=== PATIENT | female | born 1980 | race African-American/Black ===

== ENCOUNTER 2021-05-20 17:35 | Emergency (ER) | payer MEDICAID ==
[~2021-05-20] VITALS: Ht 170.2 cm; Wt 117.9 kg
[2021-05-20 17:59] VITALS: BP_SYST 143
--- NOTE | 2021-05-20 18:00 | NUR ---
Patient to ER bed 7 to gown for evaluation. Side rails up. Report given to ASYA HOUSER .
--- NOTE | 2021-05-20 18:05 | NUR ---
Pt walked in to ER with c/o abdominal pain, / x2 days. Denies n/v or diarrhea at this time. Pt is afebrile, v/s stable, no acute distress at this time.
[2021-05-20] MEDS ORDERED: NACL 0.9% 1,000 ML IV ONE (18:15)
--- NOTE | 2021-05-20 18:15 | NUR ---
ER Dr. Iverson at bedside examining patient.
--- NOTE | 2021-05-20 18:30 | NUR ---
# 20 gauge angiocath placed to LAC. Use of asceptic technique. Opsite placed over site. Blood return noted. Blood for lab drawn from site. Flushed with 10 cc of normal saline. No evidence of infiltration noted. Patient tolerated well.
[2021-05-20] MEDS ORDERED: MORPHINE 4 MG INJ. 4 MG/ML VIAL IVP ONE ×2 (18:45→19:30)
--- NOTE | 2021-05-20 18:45 | NUR ---
Patient transported to radiology via wheelchair, accompanied by staff.
[2021-05-20 18:56] LABS: BILIRUBIN,URINE NEGATIVE (NEGATIVE); CLARITY/URINE CLOUDY (CLEAR); COLOR,URINE YELLOW (YELLOW); GLUCOSE,URINE NEGATIVE (NEGATIVE); KETONES,URINE NEGATIVE (NEGATIVE); LEUKOCYTE ESTERASE ,URINE TRACE (NEGATIVE); NITRITE, URINE NEGATIVE (NEGATIVE); PH,URINE 5.5 (5.0-8.0); PROTEIN URINE NEGATIVE (NEGATIVE); UROBILINOGEN,URINE 0.2 (0.2-1.0)
[2021-05-20 19:01] LABS: BLOOD, URINE TRACE (NEGATIVE)
[2021-05-20 19:04] LABS: BASOPHILS % (AUTO) 0.5 % (0.0-2.0); EOSINOPHILS # (AUTO) 0.1 K/uL (0.0-0.4); EOSINOPHILS % (AUTO) 1.8 % (0.0-4.0); HEMATOCRIT 35.7 % (36-48); HEMOGLOBIN 11.7 g/dL (12.0-16.0); LYMPHOCYTES # (AUTO) 2.6 K/uL (1.0-5.5); LYMPHOCYTES % (AUTO) 38.2 % (20.5-51.5); MEAN CORPUSCULAR HEMOGLOBIN 26 pg (27-31); MEAN CORPUSCULAR HGB CONC 33 % (32-36); MEAN CORPUSCULAR VOLUME 79 fL (79.0-98.0); MONOCYTES # (AUTO) 0.7 K/uL (0.0-1.0); MONOCYTES % (AUTO) 10.6 % (1.7-9.3); NEUTROPHILS # (AUTO) 3.3 K/uL (1.8-7.7); NEUTROPHILS % (AUTO) 48.9 % (40.0-70.0); PLATELET COUNT (AUTO) 242 K/uL (130-430); RED BLOOD CELL COUNT(AUTO) 4.53 MIL/uL (4.2-6.2); RED CELL DISTRIBUTION WIDTH 15.3 % (9.0-15.0); WHITE BLOOD COUNT (AUTO) 6.8 K/uL (4.8-10.8)
--- NOTE | 2021-05-20 19:08 | NUR ---
Care of patient endorsed to MIK Kumari. Pt currently resting in bed, no acute distress noted.
--- NOTE | 2021-05-20 19:08 | NUR ---
Received endorsement from day shift, AAOX4, breathing spontaneously at room air, not in distress noted, with ongoing IV fluid with 0.95 Normal SAline 100ml/hour infusing at left ac g20 iv cannula noted, patent. still with abdominal pain 05/27. vital signs stable
[2021-05-20 19:15] LABS: BACTERIA,URINE MODERATE /HPF (None Seen); RBC,URINE 0-3 /HPF (0-3)
[2021-05-20 19:16] LABS: MUCUS,URINE None Seen /LPF (None Seen)
[2021-05-20 19:17] LABS: CALCIUM 8.4 mg/dL (8.4-11.0); CREATININE 0.89 mg/dL (0.55-1.30); POTASSIUM 3.3 mmol/L (3.5-5.1)
[2021-05-20 19:23] LABS: ALBUMIN 3.5 g/dL (3.4-4.8); TOTAL BILIRUBIN 0.2 mg/dL (0.0-1.0)
[2021-05-20] MEDS ORDERED: cefTRIAXone 1 GM IVPB PREMIX 50 ML IV ONE (19:30)
--- NOTE | 2021-05-20 19:35 | NUR ---
Medications given as ordered, health teaching rpovided and verbalized understanding.
--- NOTE | 2021-05-20 19:35 | NUR ---
Re-assesed by Dr. Iverson, for discharge
[2021-05-20] MEDS ORDERED: NITR-85 PO (19:36)
[2021-05-20] MEDS ORDERED: PHEN-726 PO (19:37)
--- NOTE | 2021-05-20 19:43 | NUR ---
Complained of itchiness at left arm after the Morphine 4mg IV, Dr. Iverson made aware and ordered to give Benadryl 25mg IV once. Vital signs stable
[2021-05-20] MEDS ORDERED: DIPHENHYDRAMINE INJ 50 MG/ML VIAL ONE (19:48)
--- NOTE | 2021-05-20 19:50 | NUR ---
safety technician at bedside, blood drawn for blood culture.
[2021-05-20] MEDS ORDERED: DIPHENHYDRAMINE INJ 50 MG/ML VIAL IVP ONE (20:00)
--- NOTE | 2021-05-20 21:05 | NUR ---
Above antibiotic completed, minimal abdominal pain as claimed.
[2021-05-20 21:10] VITALS: BP_SYST 125
--- NOTE | 2021-05-20 21:10 | NUR ---
Patient given written and verbal discharge instructions and verbalizes understanding. ER MD discussed with patient the results and treatment provided. Patient in stable condition. ID arm band removed. IV catheter removed intact and dressing applied, no active bleeding. Rx of Macrobin and pyridium given. Patient educated on pain management and to follow up with PMD. Pain Scale 3/10. Opportunity for questions provided and answered. Medication side effect fact sheet provided.
--- NOTE | 2021-05-20 21:31 | NUR ---
Gregory campo in [facility] - 05/20/21 at 2132 by ERASTO Patient's code status is FULL CODE, paperwork completed and placed in chart.
== END 2021-05-20 21:10 | disposition home or self-care (01) ==
LOC: SED 17:35
DX: N39.0 Urinary tract infection, site not specified (principal); I10 Essential (primary) hypertension; K21.9 Gastro-esophageal reflux disease without esophagitis; Z91.040 Latex allergy status; Z88.8 Allergy status to other drugs, medicaments and biological substances; Z79.899 Other long term (current) drug therapy
CPT/HCPCS: 36415; 74176; 76376; 80053; 81000; 85025; 87040; 87086; 96361; 96365; 96375; 96376; 99284; J0696; J1200; J2270; J7030

== ENCOUNTER 2021-06-07 17:04 | Emergency (ER) | payer MEDICAID ==
[~2021-06-07] VITALS: Ht 170.2 cm; Wt 117.9 kg
[~2021-06-07 17:04] MED LIST: NITR-85 PO; PHEN-726 PO
[2021-06-07 17:13] VITALS: BP_SYST 166
--- NOTE | 2021-06-07 17:13 | NUR ---
Placed in room 02 . Placed on monitoring and evaluation advisor, blood pressure machine and pulse oximeter. To gown for exam. Side rails up.
--- NOTE | 2021-06-07 17:20 | NUR ---
EKG performed at by MIK Hopson. Physician given copy of EKG for review.
--- NOTE | 2021-06-07 17:30 | NUR ---
Patient brought in from home complaining of lower back and body aches. Patient reports that she fell down 4-5 wooden steps onto her left side 2 hours prior to arrival. Patient reports feeling hot, lightheaded, naseous, short of breath and shaky prior to passing out and woke up with sister 1 minute later. Patient denies any loss of bowel or bladder. Pain 10/10 to the lwoer back. patient reports this has happened 3 times in the last 2 weeks. No other complaints/injuries per patient or as noted.
--- NOTE | 2021-06-07 17:45 | NUR ---
ER Dr. Keyes at bedside examining patient.
[2021-06-07 18:11] LABS: CALCIUM 8.9 mg/dL (8.4-11.0); POTASSIUM 3.7 mmol/L (3.5-5.1)
[2021-06-07 18:12] LABS: CREATININE 0.8 mg/dL (0.55-1.30)
[2021-06-07] MEDS ORDERED: CYCLOBENZAPRINE HCL 10 MG TABLET (FLEXERIL) PO ONE (18:15)
[2021-06-07 18:28] LABS: ALBUMIN 3.4 g/dL (3.4-4.8); PHOSPHORUS 3.8 mg/dL (2.7-4.5); TOTAL BILIRUBIN 0.2 mg/dL (0.0-1.0)
[2021-06-07 18:32] LABS: BASOPHILS % (AUTO) 0.5 % (0.0-2.0); EOSINOPHILS # (AUTO) 0.1 K/uL (0.0-0.4); EOSINOPHILS % (AUTO) 2.2 % (0.0-4.0); HEMATOCRIT 36.5 % (36-48); HEMOGLOBIN 11.8 g/dL (12.0-16.0); LYMPHOCYTES # (AUTO) 1.7 K/uL (1.0-5.5); LYMPHOCYTES % (AUTO) 30.6 % (20.5-51.5); MEAN CORPUSCULAR HEMOGLOBIN 26 pg (27-31); MEAN CORPUSCULAR HGB CONC 32 % (32-36); MEAN CORPUSCULAR VOLUME 79 fL (79.0-98.0); MONOCYTES # (AUTO) 0.6 K/uL (0.0-1.0); MONOCYTES % (AUTO) 10.4 % (1.7-9.3); NEUTROPHILS # (AUTO) 3.1 K/uL (1.8-7.7); NEUTROPHILS % (AUTO) 56.3 % (40.0-70.0); PLATELET COUNT (AUTO) 238 K/uL (130-430); RED BLOOD CELL COUNT(AUTO) 4.63 MIL/uL (4.2-6.2); RED CELL DISTRIBUTION WIDTH 15.7 % (9.0-15.0); WHITE BLOOD COUNT (AUTO) 5.5 K/uL (4.8-10.8)
--- NOTE | 2021-06-07 19:50 | NUR ---
REPORT RECEIVED FROM MIK AGRAWAL. PT STATING HAVING 10/10 ON THE PAIN SCALE TO LEFT SIDE OF BODY AND BACK. MD NARANJO NOTIFIED.
[2021-06-07] MEDS ORDERED: CYCL10TA24 PO (20:03)
[2021-06-07] MEDS ORDERED: ACET-73 PO (20:03)
[2021-06-07] MEDS ORDERED: HYDROcodone/ACETAMIN 5-325 MG TAB (NORCO/ VICODIN) PO ONE (20:15)
[2021-06-07 20:20] VITALS: BP_SYST 166
--- NOTE | 2021-06-07 20:20 | NUR ---
Patient given written and verbal discharge instructions and verbalizes understanding. DR. JOSE A PEDROZA MD discussed with patient the results and treatment provided. Patient in stable condition. ID arm band removed. IV catheter removed intact and dressing applied, no active bleeding. Rx of ACETAMINOPEH, CYCLOBENZAPRINE given. Patient educated on pain management and to follow up with PMD. Pain Scale 0/10. Opportunity for questions provided and answered. Medication side effect fact sheet provided.
== END 2021-06-07 20:20 | disposition home or self-care (01) ==
LOC: SED 17:04
DX: S39.012A Strain of muscle, fascia and tendon of lower back, initial encounter (principal); R55 Syncope and collapse; I10 Essential (primary) hypertension; K21.9 Gastro-esophageal reflux disease without esophagitis; Z88.8 Allergy status to other drugs, medicaments and biological substances; Z91.040 Latex allergy status; W18.39XA Other fall on same level, initial encounter; Y93.89 Activity, other specified; Y92.89 Other specified places as the place of occurrence of the external cause; Y99.8 Other external cause status
CPT/HCPCS: 36415; 80053; 81025; 82962; 83735; 84100; 84702; 85025; 93005; 99284

== ENCOUNTER 2021-06-16 18:07 | Emergency (ER) | payer MEDICAID ==
[~2021-06-16] VITALS: Ht 170.2 cm; Wt 108.9 kg
[~2021-06-16 18:07] MED LIST changes: +ACET-73 PO; +CYCL10TA24 PO
[2021-06-16 18:19] VITALS: BP_SYST 138
[2021-06-16 21:43] LABS: BARBITURATE, URINE NEGATIVE (NEG <=200); BENZODIAZEPINE, URINE NEGATIVE (NEG <=150); CANNABINOID, URINE NEGATIVE (NEG <=50); COCAINE, URINE NEGATIVE (NEG <=150); METHAMPHETAMINES SCREEN,URINE NEGATIVE (NEG <=500); OPIATE, URINE POSITIVE (NEG <=100); PHENCYCLIDINE SCREEN,URINE NEGATIVE (NEG <=25); UR TRICYCLIC ANTIDEPRESSANTS NEGATIVE (NEG <=300); URINE AMPHETAMINE NEGATIVE (NEG <=500); URINE METHADONE NEGATIVE (NEG <=200); URINE OXYCODONE SCREEN NEGATIVE (NEG <=100); URINE PROPOXYPHENE SCREEN NEGATIVE (NEG <=300)
[2021-06-16] MEDS ORDERED: HYDROcodone/ACETAMIN 5-325 MG TAB (NORCO/ VICODIN) PO ONE ×2 (21:45→23:30)
[2021-06-16 21:55] LABS: BASOPHILS % (AUTO) 0.5 % (0.0-2.0); EOSINOPHILS # (AUTO) 0.1 K/uL (0.0-0.4); EOSINOPHILS % (AUTO) 2.9 % (0.0-4.0); HEMATOCRIT 34.2 % (36-48); HEMOGLOBIN 11.3 g/dL (12.0-16.0); LYMPHOCYTES # (AUTO) 1.5 K/uL (1.0-5.5); LYMPHOCYTES % (AUTO) 31.3 % (20.5-51.5); MEAN CORPUSCULAR HEMOGLOBIN 26 pg (27-31); MEAN CORPUSCULAR HGB CONC 33 % (32-36); MEAN CORPUSCULAR VOLUME 79 fL (79.0-98.0); MONOCYTES # (AUTO) 0.4 K/uL (0.0-1.0); NEUTROPHILS # (AUTO) 2.8 K/uL (1.8-7.7); NEUTROPHILS % (AUTO) 56.3 % (40.0-70.0); PLATELET COUNT (AUTO) 222 K/uL (130-430); RED BLOOD CELL COUNT(AUTO) 4.32 MIL/uL (4.2-6.2); RED CELL DISTRIBUTION WIDTH 15.7 % (9.0-15.0); WHITE BLOOD COUNT (AUTO) 4.9 K/uL (4.8-10.8)
[2021-06-16 22:16] LABS: CALCIUM 8.6 mg/dL (8.4-11.0); CREATININE 0.91 mg/dL (0.55-1.30); POTASSIUM 3.8 mmol/L (3.5-5.1)
[2021-06-16 22:22] LABS: ALBUMIN 3.5 g/dL (3.4-4.8); TOTAL BILIRUBIN 0.2 mg/dL (0.0-1.0)
[2021-06-16] MEDS ORDERED: HYDR-3917 PO (23:27)
[2021-06-16 23:50] VITALS: BP_SYST 124
== END 2021-06-16 23:50 | disposition home or self-care (01) ==
LOC: SED 18:07
DX: S30.0XXA Contusion of lower back and pelvis, initial encounter (principal); S09.90XA Unspecified injury of head, initial encounter; I10 Essential (primary) hypertension; K21.9 Gastro-esophageal reflux disease without esophagitis; Z91.040 Latex allergy status; Z88.8 Allergy status to other drugs, medicaments and biological substances; Z79.899 Other long term (current) drug therapy; W18.39XA Other fall on same level, initial encounter; Y93.89 Activity, other specified; Y92.89 Other specified places as the place of occurrence of the external cause; Y99.8 Other external cause status
CPT/HCPCS: 36415; 70450-TC; 72100-TC; 76376; 80053; 80307; 81025; 85025; 99285

== ENCOUNTER 2021-08-17 18:23 | Emergency (ER) | payer MEDICAID ==
[~2021-08-17] VITALS: Ht 170.2 cm; Wt 117.9 kg
[~2021-08-17 18:23] MED LIST changes: +HYDR-3917 PO
[2021-08-17 18:25] VITALS: BP_SYST 129
--- NOTE | 2021-08-17 18:25 | NUR ---
BROUGHT BACK TO BED #7 AND TRIAGED. REPORT GIVEN TO ELMER
--- NOTE | 2021-08-17 18:35 | NUR ---
EKG done, pt. here for 10/10 chest pain
--- NOTE | 2021-08-17 18:55 | NUR ---
radiology at bedside for chest xray
--- NOTE | 2021-08-17 19:08 | NUR ---
REPORT RECEIVED FROM ELMER HOUSER
--- NOTE | 2021-08-17 19:14 | NUR ---
DR LEWIS AT BEDSIDE SPEKING WITH PT. PT STATES SHE HAS HAD ONGOING CRUSHING CHEST PAIN X 24 HRS, STATES WORSE WITH BREATHING. PT REMAINS ON BEDSDIDE MONITOR. BED IN LIWEST POSITION, LOCKED, AMD SIDERAIL UP X 1. LAB AT BEDSIDE
[2021-08-17] MEDS ORDERED: MORPHINE 4 MG INJ. 4 MG/ML VIAL IVP ONE ×2 (19:30→20:45)
[2021-08-17 19:38] LABS: BASOPHILS % (AUTO) 0.7 % (0.0-2.0); EOSINOPHILS # (AUTO) 0.2 K/uL (0.0-0.4); EOSINOPHILS % (AUTO) 3.3 % (0.0-4.0); HEMATOCRIT 33.3 % (36-48); HEMOGLOBIN 10.8 g/dL (12.0-16.0); LYMPHOCYTES # (AUTO) 1.2 K/uL (1.0-5.5); LYMPHOCYTES % (AUTO) 26.8 % (20.5-51.5); MEAN CORPUSCULAR HEMOGLOBIN 25 pg (27-31); MEAN CORPUSCULAR HGB CONC 33 % (32-36); MEAN CORPUSCULAR VOLUME 77 fL (79.0-98.0); MONOCYTES # (AUTO) 0.5 K/uL (0.0-1.0); MONOCYTES % (AUTO) 10.5 % (1.7-9.3); NEUTROPHILS # (AUTO) 2.7 K/uL (1.8-7.7); NEUTROPHILS % (AUTO) 58.7 % (40.0-70.0); PLATELET COUNT (AUTO) 257 K/uL (130-430); RED BLOOD CELL COUNT(AUTO) 4.32 MIL/uL (4.2-6.2); RED CELL DISTRIBUTION WIDTH 15.9 % (9.0-15.0); WHITE BLOOD COUNT (AUTO) 4.5 K/uL (4.8-10.8)
[2021-08-17] MEDS ORDERED: IOHEXOL 350 mgI/mL, 150 ML INFUS..BTL IV ONE (19:53)
--- NOTE | 2021-08-17 19:56 | NUR ---
PT TO HAVE CT OF CHEST WITH IV CONTRAST, CONSENT SIGNED BY PT
--- NOTE | 2021-08-17 20:00 | NUR ---
PT TAKEN TO CT VIA WHEELCHAIR
[2021-08-17 20:01] LABS: CALCIUM 8.6 mg/dL (8.4-11.0); CREATININE 0.87 mg/dL (0.55-1.30); POTASSIUM 3.9 mmol/L (3.5-5.1)
[2021-08-17 20:07] LABS: ALBUMIN 3.5 g/dL (3.4-4.8); TOTAL BILIRUBIN 0.1 mg/dL (0.0-1.0)
[2021-08-17] MEDS ORDERED: methylPREDNISolone SOD SUCC/PF 62.5 MG/ML VIAL ONE (20:11)
[2021-08-17] MEDS ORDERED: DIPHENHYDRAMINE INJ 50 MG/ML VIAL ONE (20:13)
--- NOTE | 2021-08-17 20:13 | NUR ---
PT RETURNED FROM CT
[2021-08-17] MEDS ORDERED: methylPREDNISolone SOD SUCC/PF 62.5 MG/ML VIAL IVP ONE (20:15)
[2021-08-17] MEDS ORDERED: DIPHENHYDRAMINE INJ 50 MG/ML VIAL IVP ONE (20:15)
--- NOTE | 2021-08-17 20:19 | NUR ---
PT RETURNED FROM CT AND WAS MEDICATED WITH BENADRYL AND SOLUMEDROL AFTER COMPLAINING OF ITCHING. AFTER MEDICATION SHE IS COMPLAINING OF NAUSEA, PROVIDED WITH BASIN. ALSO CONTINUTES TO C/O 8/10 CHEST PAIN. SIN AWARE
[2021-08-17] MEDS ORDERED: ONDANSETRON HCL 4 MG/2 ML VIAL IVP ONE (20:45)
--- NOTE | 2021-08-17 20:56 | NUR ---
PT RESTING MORE COMFORTABLY, PAIN NOW 5/10, NO MORE NAUSEA AND NO ITCHING.
--- NOTE | 2021-08-17 22:36 | NUR ---
ALL LAB WORK WNL, WAITING FOR MD TO SEE PT. PT RESTING COMFORTABLY, PAIN DOWN TO 2/10. NO C/O AT THIS TIME.
[2021-08-17 23:34] VITALS: BP_SYST 137
--- NOTE | 2021-08-17 23:35 | NUR ---
Patient given written and verbal discharge instructions and verbalizes understanding. ER MD discussed with patient the results and treatment provided. Patient in stable condition. ID arm band removed. IV catheter removed intact and dressing applied, no active bleeding. Patient educated on pain management and to follow up with PMD. Pain Scale 2. Opportunity for questions provided and answered. Medication side effect fact sheet provided.
== END 2021-08-17 23:35 | disposition home or self-care (01) ==
LOC: SED 18:23
DX: R07.2 Precordial pain (principal); I10 Essential (primary) hypertension; K21.9 Gastro-esophageal reflux disease without esophagitis; Z88.8 Allergy status to other drugs, medicaments and biological substances; Z79.899 Other long term (current) drug therapy
CPT/HCPCS: 36415; 71045; 71275; 76376; 80053; 81025; 83880; 84484; 85025; 85379; 93005; 96374; 96375; 96376; 99285; J1200; J2270; J2405; J2930; Q9967

== ENCOUNTER → 2022-03-20 | Emergency (ER) | payer MEDICAID ==
[~2022-03-20] VITALS: Ht 167.6 cm; Wt 109.8 kg
[~2022-03-20] MED LIST changes: +DEXAMETHASONE SOD PHOSPHATE 10 MG/ML VIAL IVP ONE; +DIPHENHYDRAMINE INJ 50 MG/ML VIAL IVP ONE; +MORPHINE 4 MG INJ. 4 MG/ML VIAL IVP ONE; +MORPHINE 4 MG INJ. 4 MG/ML VIAL ONE; +PANT20TA2 PO; +PANTOPRAZOLE SODIUM 40 MG/VIAL (PROTONIX) IVP ONE; +PRED20TA PO; +PROCHLORPERAZINE EDISYLATE 10 MG/2 ML VIAL IVP ONE; +PROCHLORPERAZINE EDISYLATE 10 MG/2 ML VIAL ONE; +iohexoL 350 mgI/mL, 100 ML INFUS..BTL IV ONE; +traMADol HCL HCL 50 MG TABLET (ULTRAM) PO ONE
[2022-03-20 21:30] VITALS: BP_SYST 127
[2022-03-20 23:52] LABS: HEMOGLOBIN 9.7 g/dL (12.0-16.0)
[2022-03-20 23:57] LABS: BASOPHILS % (AUTO) 0.6 % (0.0-2.0); EOSINOPHILS # (AUTO) 0.1 K/uL (0.0-0.4); HEMATOCRIT 29.2 % (36-48); LYMPHOCYTES # (AUTO) 0.8 K/uL (1.0-5.5); LYMPHOCYTES % (AUTO) 26.6 % (20.5-51.5); MEAN CORPUSCULAR HEMOGLOBIN 26 pg (27-31); MEAN CORPUSCULAR HGB CONC 33 % (32-36); MEAN CORPUSCULAR VOLUME 76 fL (79.0-98.0); MONOCYTES # (AUTO) 0.5 K/uL (0.0-1.0); MONOCYTES % (AUTO) 15.2 % (1.7-9.3); NEUTROPHILS # (AUTO) 1.7 K/uL (1.8-7.7); NEUTROPHILS % (AUTO) 55.6 % (40.0-70.0); PLATELET COUNT (AUTO) 238 K/uL (130-430); RED BLOOD CELL COUNT(AUTO) 3.83 MIL/uL (4.2-6.2); WHITE BLOOD COUNT (AUTO) 3.1 K/uL (4.8-10.8)
[2022-03-20 23:59] LABS: ANION GAP 5 (5-15); CALCIUM 8.2 mg/dL (8.4-11.0); CHLORIDE 104 mmol/L (98-107); CREATININE 0.87 mg/dL (0.55-1.30); GLUCOSE 120 mg/dL (70-99); POTASSIUM 3.4 mmol/L (3.5-5.1); SODIUM SERUM 139 mmol/L (136-145); UREA NITROGEN, BLOOD 5 mg/dL (8-21)
[2022-03-21 00:07] LABS: ALANINE AMINOTRANSFERASE 56 U/L (12-78); ALBUMIN 3.4 g/dL (3.4-4.8); ASPARTATE AMINOTRANSFERASE 47 U/L (10-37); TOTAL BILIRUBIN 0.3 mg/dL (0.0-1.0)
[2022-03-21 00:09] LABS: GFR AFRICAN AMERICAN 93 mL/min (>90)
[2022-03-21 06:31] VITALS: BP_SYST 115
== END | disposition home or self-care (01) ==
LOC: SED 21:25
DX: K92.2 Gastrointestinal hemorrhage, unspecified (principal); R09.1 Pleurisy; R06.02 Shortness of breath; R10.13 Epigastric pain; I10 Essential (primary) hypertension; Z88.6 Allergy status to analgesic agent; Z91.040 Latex allergy status; Z79.899 Other long term (current) drug therapy
CPT/HCPCS: 36415; 71045; 71275; 76376; 80053; 81025; 83880; 84484; 85025; 85379; 93005; 96374; 96375; 99285; C9113; J0780; J1100; J1200; J2270; Q9967

== ENCOUNTER 2022-04-24 11:40 | Emergency (ER) | payer MEDICAID ==
[~2022-04-24] VITALS: Ht 167.6 cm; Wt 109.8 kg
[~2022-04-24 11:40] MED LIST changes: -DEXAMETHASONE SOD PHOSPHATE 10 MG/ML VIAL IVP ONE; -DIPHENHYDRAMINE INJ 50 MG/ML VIAL IVP ONE; -MORPHINE 4 MG INJ. 4 MG/ML VIAL IVP ONE; -MORPHINE 4 MG INJ. 4 MG/ML VIAL ONE; -PANTOPRAZOLE SODIUM 40 MG/VIAL (PROTONIX) IVP ONE; -PROCHLORPERAZINE EDISYLATE 10 MG/2 ML VIAL IVP ONE; -PROCHLORPERAZINE EDISYLATE 10 MG/2 ML VIAL ONE; -iohexoL 350 mgI/mL, 100 ML INFUS..BTL IV ONE; -traMADol HCL HCL 50 MG TABLET (ULTRAM) PO ONE
[2022-04-24 11:43] VITALS: BP_SYST 142
[2022-04-24] MEDS ORDERED: DIPHENHYDRAMINE INJ 50 MG/ML VIAL IVP ONE ×2 (12:15→14:45)
[2022-04-24] MEDS ORDERED: methylPREDNISolone SOD SUCC/PF 62.5 MG/ML VIAL IVP ONE (12:15)
[2022-04-24 12:31] LABS: BASOPHILS % (AUTO) 0.2 % (0.0-2.0); HEMATOCRIT 31.8 % (36-48); HEMOGLOBIN 10.4 g/dL (12.0-16.0); LYMPHOCYTES # (AUTO) 0.3 K/uL (1.0-5.5); MEAN CORPUSCULAR HEMOGLOBIN 24 pg (27-31); MEAN CORPUSCULAR HGB CONC 33 % (32-36); MEAN CORPUSCULAR VOLUME 74 fL (79.0-98.0); MONOCYTES # (AUTO) 0.2 K/uL (0.0-1.0); MONOCYTES % (AUTO) 3.4 % (1.7-9.3); NEUTROPHILS # (AUTO) 5.4 K/uL (1.8-7.7); NEUTROPHILS % (AUTO) 91.4 % (40.0-70.0); PLATELET COUNT (AUTO) 269 K/uL (130-430); RED BLOOD CELL COUNT(AUTO) 4.28 MIL/uL (4.2-6.2); RED CELL DISTRIBUTION WIDTH 16.3 % (9.0-15.0); WHITE BLOOD COUNT (AUTO) 5.9 K/uL (4.8-10.8)
[2022-04-24 13:04] LABS: CALCIUM 9.4 mg/dL (8.4-11.0); CREATININE 0.9 mg/dL (0.55-1.30); POTASSIUM 3.9 mmol/L (3.5-5.1)
[2022-04-24 13:16] LABS: ALBUMIN 3.5 g/dL (3.4-4.8); TOTAL BILIRUBIN 0.2 mg/dL (0.0-1.0)
[2022-04-24] MEDS ORDERED: DIPHENHYDRAMINE INJ 50 MG/ML VIAL ONE (14:27)
[2022-04-24] MEDS ORDERED: methylPREDNISolone SOD SUCC/PF 62.5 MG/ML VIAL ONE (14:28)
[2022-04-24] MEDS ORDERED: iohexoL 350 mgI/mL, 100 ML INFUS..BTL IV ONE (14:53)
[2022-04-24] MEDS ORDERED: MORPHINE 2 MG/ML INJ. SYRINGE IVP ONE (15:30)
[2022-04-24] MEDS ORDERED: ACET-2634 PO (15:58)
[2022-04-24] MEDS ORDERED: IBUP-1969 PO (15:58)
[2022-04-24 17:12] VITALS: BP_SYST 142
== END 2022-04-24 17:12 | disposition home or self-care (01) ==
LOC: SED 11:40
DX: R07.9 Chest pain, unspecified (principal); R06.02 Shortness of breath; I10 Essential (primary) hypertension; K21.9 Gastro-esophageal reflux disease without esophagitis; Z88.6 Allergy status to analgesic agent; Z91.040 Latex allergy status; Z79.899 Other long term (current) drug therapy
CPT/HCPCS: 36569; 80053; 85025; 85379; 84484; 36415; 71275; 99285; 96375; 96374; 93005; 76376; Q9967; J1200; J2930; J2270

== ENCOUNTER 2022-06-14 12:48 | Emergency (ER) | payer MEDICAID ==
[~2022-06-14] VITALS: Ht 167.6 cm; Wt 109.8 kg
[~2022-06-14 12:48] MED LIST changes: +ACET-2634 PO; +IBUP-1969 PO; +RIVA15TA PO; +TRAM50TA PO
--- NOTE | 2022-06-14 12:50 | NUR ---
RECEIVED PT FROM MIK HOLLY. PT BIBS WITH C/O SYNCOPE WITH INJURY TO HEAD, N/V, C/P AND BACK PAIN. PT CAME IN FROM HOME WITH IV CATH TO LATRICE 20G, FLUSHED, PATENT, SITE WNL. RESP E/U. NO R/A. SKIN CDI, NO EDEMA. SIDERAILS UP X2.
[2022-06-14 12:59] VITALS: BP_SYST 100
--- NOTE | 2022-06-14 13:20 | NUR ---
Placed in room 03 . Placed on director translation, blood pressure machine and pulse oximeter. To gown for exam. Side rails up. Report given to Anne HOUSER.
[2022-06-14 13:43] LABS: HEMATOCRIT 26.9 % (36-48); MEAN CORPUSCULAR VOLUME 75 fL (79.0-98.0); PLATELET COUNT (AUTO) 200 K/uL (130-430); RED BLOOD CELL COUNT(AUTO) 3.59 MIL/uL (4.2-6.2); RED CELL DISTRIBUTION WIDTH 20.4 % (9.0-15.0); WHITE BLOOD COUNT (AUTO) 6.1 K/uL (4.8-10.8)
[2022-06-14] MEDS ORDERED: DIPHENHYDRAMINE INJ 50 MG/ML VIAL IVP ONE (13:45)
[2022-06-14] MEDS ORDERED: iohexoL 350 mgI/mL, 100 ML INFUS..BTL IV ONE (14:05)
--- NOTE | 2022-06-14 14:10 | NUR ---
BENEDRYL GIVEN IN PREP FOR CTA.
[2022-06-14 14:20] LABS: ANION GAP 11 (5-15); CALCIUM 8.7 mg/dL (8.4-11.0); CHLORIDE 108 mmol/L (98-107); CREATININE 0.92 mg/dL (0.55-1.30); GLUCOSE 157 mg/dL (70-99); UREA NITROGEN, BLOOD 10 mg/dL (8-21)
[2022-06-14 14:24] LABS: BAND % (MANUAL) 2 % (0-6); BASOPHILS % (MANUAL) 0 % (0-2); EOSINOPHILS % (MANUAL) 0 % (0-7); LYMPHOCYTES % (MANUAL) 12 % (20-46); MONOCYTES % (MANUAL) 3 % (0-11)
[2022-06-14 14:26] LABS: GFR AFRICAN AMERICAN 87 mL/min (>90)
[2022-06-14 14:28] LABS: ALANINE AMINOTRANSFERASE 80 U/L (12-78); ALBUMIN 2.9 g/dL (3.4-4.8); ASPARTATE AMINOTRANSFERASE 19 U/L (10-37); TOTAL BILIRUBIN 0.1 mg/dL (0.0-1.0)
--- NOTE | 2022-06-14 16:06 | NUR ---
PT ELOPED. PT HAD IV CATH IN PLACE THAT WAS PLACED OUTSIDE THIS FACILITY, PT WAS ADMITTED WITH IT.
== END 2022-06-14 16:05 | disposition left against medical advice (07) ==
LOC: SED 12:48
DX: R07.89 Other chest pain (principal); K21.9 Gastro-esophageal reflux disease without esophagitis; I10 Essential (primary) hypertension; Z88.6 Allergy status to analgesic agent; Z91.040 Latex allergy status; Z91.041 Radiographic dye allergy status; Z79.899 Other long term (current) drug therapy
CPT/HCPCS: 99285; 70450; 96374; 71045; 85027; 80053; 85007; 84484; 36415; 93005; 71275; 81025; 76376; Q9967; J1200

== ENCOUNTER 2022-07-17 14:02 | Emergency (ER) | payer MEDICAID ==
[~2022-07-17] VITALS: Ht 167.6 cm; Wt 110.2 kg
[2022-07-17 14:05] VITALS: BP_SYST 126
--- NOTE | 2022-07-17 14:05 | NUR ---
Patient triaged and placed in waiting room. VSS and patient appears in no acute distress at this time. Accompanied by SELF, awaiting available bed, and MD notified of need for MSE.
--- NOTE | 2022-07-17 14:24 | NUR ---
ER DR. MARTIN EXAMINING PT IN TRIAGE
[2022-07-17 15:01] LABS: BASOPHILS % (AUTO) 0.5 % (0.0-2.0); EOSINOPHILS % (AUTO) 0.1 % (0.0-4.0); HEMATOCRIT 26.6 % (36-48); HEMOGLOBIN 8.5 g/dL (12.0-16.0); LYMPHOCYTES # (AUTO) 0.8 K/uL (1.0-5.5); MEAN CORPUSCULAR HEMOGLOBIN 23 pg (27-31); MEAN CORPUSCULAR HGB CONC 32 % (32-36); MEAN CORPUSCULAR VOLUME 73 fL (79.0-98.0); MONOCYTES # (AUTO) 0.6 K/uL (0.0-1.0); MONOCYTES % (AUTO) 12.5 % (1.7-9.3); NEUTROPHILS # (AUTO) 3.1 K/uL (1.8-7.7); NEUTROPHILS % (AUTO) 69.9 % (40.0-70.0); PLATELET COUNT (AUTO) 233 K/uL (130-430); RED BLOOD CELL COUNT(AUTO) 3.63 MIL/uL (4.2-6.2); WHITE BLOOD COUNT (AUTO) 4.4 K/uL (4.8-10.8)
[2022-07-17 15:07] LABS: ANION GAP 6 (5-15); CHLORIDE 106 mmol/L (98-107); CREATININE 0.84 mg/dL (0.55-1.30); GLUCOSE 102 mg/dL (70-99); POTASSIUM 3.3 mmol/L (3.5-5.1); UREA NITROGEN, BLOOD 14 mg/dL (8-21)
[2022-07-17 15:16] LABS: ALANINE AMINOTRANSFERASE 26 U/L (12-78); ALBUMIN 3.5 g/dL (3.4-4.8); ASPARTATE AMINOTRANSFERASE 10 U/L (10-37); TOTAL BILIRUBIN 0.1 mg/dL (0.0-1.0)
[2022-07-17 15:19] LABS: GFR AFRICAN AMERICAN 97 mL/min (>90)
--- NOTE | 2022-07-17 15:25 | NUR ---
Placed in room 7 . Placed on athletic monitor, blood pressure machine and pulse oximeter. To gown for exam. Side rails up. Report given to MIK PALAFOX.
[2022-07-17] MEDS ORDERED: DIPHENHYDRAMINE INJ 50 MG/ML VIAL IVP ONE (16:30)
[2022-07-17] MEDS ORDERED: METHYLPREDNISOLONE SOD SUCC 40 MG/ML VIAL INJ ONE (16:30)
--- NOTE | 2022-07-17 17:24 | NUR ---
patient to ed for complains of syncopal episode three hours ago at work. patient has complaints of midsternal chest pain, denies radiation and sob. NSR on the monitor and sitting and watching cartoons on her phone at this time. patient has internal IJ started by Dr. 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 patient states she has PE's four months ago, Afib april of last year patient has regular rhythm today. patient administered benadryl iv and solumedrol iv at this time. will continue to monitor patient. patient remains on color television console monitor, blankets adminitered. comfort and safety maintained.
--- NOTE | 2022-07-17 17:35 | NUR ---
MD notified of patient's pain level and no orders for pain medication.
--- NOTE | 2022-07-17 17:42 | NUR ---
patient to ct scan in stable condition
--- NOTE | 2022-07-17 17:43 | NUR ---
patient administered benadryl and solumedrol for ct contrast reactions
[2022-07-17] MEDS ORDERED: iohexoL 350 mgI/mL, 100 ML INFUS..BTL IV ONE (17:44)
--- NOTE | 2022-07-17 18:29 | NUR ---
patient back from radiology, waiting for results at this time. patient resting comfortably and talking on cell phone
[2022-07-17 18:30] VITALS: BP_SYST 106
[2022-07-17] MEDS ORDERED: HYDR-3917 PO (18:45)
[2022-07-17] MEDS ORDERED: IBUP-1969 PO (18:45)
--- NOTE | 2022-07-17 18:59 | NUR ---
Patient given written and verbal discharge instructions and verbalizes understanding. ER MD discussed with patient the results and treatment provided. Patient in stable condition. ID arm band removed. IV catheter removed intact and dressing applied, no active bleeding. Rx of given. Patient educated on pain management and to follow up with PMD. Pain Scale . Opportunity for questions provided and answered. Medication side effect fact sheet provided. MD dr. Vanegas removed right neck IJ at this time, cath in place, no bleeding, swelling or hematoma.
== END 2022-07-17 19:06 | disposition home or self-care (01) ==
LOC: SED 14:02
DX: R55 Syncope and collapse (principal); R07.89 Other chest pain; I10 Essential (primary) hypertension; K21.9 Gastro-esophageal reflux disease without esophagitis; Z72.89 Other problems related to lifestyle; Z88.6 Allergy status to analgesic agent; Z91.041 Radiographic dye allergy status; Z91.040 Latex allergy status; Z79.899 Other long term (current) drug therapy
CPT/HCPCS: 99285; 70450; 96374; 71045; 80053; 82550; 85025; 85379; 85610; 85730; 84484; 36415; 93005; 71275; 81025; 83605; 76376; Q9967; J1200; J1030

== ENCOUNTER 2022-12-10 14:59 | Emergency (ER) | payer MEDICAID ==
[~2022-12-10] VITALS: Ht 167.6 cm; Wt 110.2 kg
[2022-12-10 15:14] VITALS: BP_SYST 138
[2022-12-10 16:16] LABS: BASOPHILS % (AUTO) 0.4 % (0.0-2.0); HEMATOCRIT 29.7 % (36-48); HEMOGLOBIN 9.5 g/dL (12.0-16.0); LYMPHOCYTES # (AUTO) 0.7 K/uL (1.0-5.5); LYMPHOCYTES % (AUTO) 9.9 % (20.5-51.5); MEAN CORPUSCULAR HEMOGLOBIN 24 pg (27-31); MEAN CORPUSCULAR HGB CONC 32 % (32-36); MEAN CORPUSCULAR VOLUME 76 fL (79.0-98.0); MONOCYTES # (AUTO) 0.9 K/uL (0.0-1.0); NEUTROPHILS # (AUTO) 5.5 K/uL (1.8-7.7); NEUTROPHILS % (AUTO) 76.7 % (40.0-70.0); PLATELET COUNT (AUTO) 242 K/uL (130-430); RED CELL DISTRIBUTION WIDTH 21.4 % (9.0-15.0); WHITE BLOOD COUNT (AUTO) 7.2 K/uL (4.8-10.8)
[2022-12-10 16:41] LABS: ANION GAP 8 (5-15); CALCIUM 8.9 mg/dL (8.4-11.0); CHLORIDE 104 mmol/L (98-107); CREATININE 0.73 mg/dL (0.55-1.30); GFR AFRICAN AMERICAN 114 mL/min (>90); GLUCOSE 152 mg/dL (70-99); UREA NITROGEN, BLOOD 9 mg/dL (8-21)
[2022-12-10 16:46] LABS: ALANINE AMINOTRANSFERASE 16 U/L (12-78); ALBUMIN 3.2 g/dL (3.4-4.8); ASPARTATE AMINOTRANSFERASE 8 U/L (10-37); PROTHROMBIN TIME 10.2 SECS (9.5-12.5); TOTAL BILIRUBIN 0.2 mg/dL (0.0-1.0)
[2022-12-10] MEDS ORDERED: HYDR-3917 PO (17:17)
[2022-12-10] MEDS ORDERED: IBUP-1969 PO (17:17)
[2022-12-10 17:50] VITALS: BP_SYST 123
== END 2022-12-10 17:50 | disposition home or self-care (01) ==
LOC: SED 14:59
DX: R07.89 Other chest pain (principal); R05.9 Cough, unspecified; R06.02 Shortness of breath; E11.9 Type 2 diabetes mellitus without complications; I10 Essential (primary) hypertension; Z91.041 Radiographic dye allergy status; Z88.6 Allergy status to analgesic agent; Z79.899 Other long term (current) drug therapy
CPT/HCPCS: 36415; 71045; 80053; 84484; 85025; 85379; 85610-TC; 85730-TC; 93005; 99285

== ENCOUNTER 2023-01-14 22:53 | Emergency (ER) | payer MEDICAID ==
[~2023-01-14] VITALS: Ht 167.6 cm; Wt 113.4 kg
[2023-01-14 23:15] VITALS: BP_SYST 140
[2023-01-15] MEDS ORDERED: PANTOPRAZOLE SODIUM 40 MG/VIAL (PROTONIX) IVP ONE
[2023-01-15] MEDS ORDERED: NACL 0.9% 1,000 ML IV ONE
[2023-01-15 00:53] LABS: BASOPHILS % (AUTO) 0.2 % (0.0-2.0); EOSINOPHILS # (AUTO) 0.1 K/uL (0.0-0.4); EOSINOPHILS % (AUTO) 1.4 % (0.0-4.0); HEMATOCRIT 33.1 % (36-48); HEMOGLOBIN 10.4 g/dL (12.0-16.0); LYMPHOCYTES # (AUTO) 0.6 K/uL (1.0-5.5); LYMPHOCYTES % (AUTO) 9.4 % (20.5-51.5); MEAN CORPUSCULAR HEMOGLOBIN 25 pg (27-31); MEAN CORPUSCULAR HGB CONC 32 % (32-36); MEAN CORPUSCULAR VOLUME 78 fL (79.0-98.0); MONOCYTES # (AUTO) 0.6 K/uL (0.0-1.0); MONOCYTES % (AUTO) 10.7 % (1.7-9.3); NEUTROPHILS # (AUTO) 4.7 K/uL (1.8-7.7); NEUTROPHILS % (AUTO) 78.3 % (40.0-70.0); PLATELET COUNT (AUTO) 213 K/uL (130-430); RED BLOOD CELL COUNT(AUTO) 4.22 MIL/uL (4.2-6.2); RED CELL DISTRIBUTION WIDTH 20.8 % (9.0-15.0)
[2023-01-15 01:05] LABS: CALCIUM 8.4 mg/dL (8.4-11.0); CREATININE 0.93 mg/dL (0.55-1.30)
[2023-01-15] MEDS ORDERED: fentaNYL CITRATE/PF 100 MCG/2 ML AMP IVP ONE ×2 (01:15→06:30)
[2023-01-15] MEDS ORDERED: PROCHLORPERAZINE EDISYLATE 10 MG/2 ML VIAL IVP ONE (01:15)
[2023-01-15] MEDS ORDERED: TRANEXAMIC ACID 1,000 MG/10 ML VIAL IV ONE ×2 (01:30)
[2023-01-15 01:42] LABS: PROTHROMBIN TIME 10.5 SECS (9.5-12.5)
[2023-01-15] MEDS ORDERED: DIPHENHYDRAMINE INJ 50 MG/ML VIAL IVP ONE (03:15)
[2023-01-15 05:31] LABS: BASOPHILS % (AUTO) 0.1 % (0.0-2.0); EOSINOPHILS # (AUTO) 0.1 K/uL (0.0-0.4); EOSINOPHILS % (AUTO) 2.5 % (0.0-4.0); HEMATOCRIT 27.9 % (36-48); LYMPHOCYTES # (AUTO) 0.4 K/uL (1.0-5.5); LYMPHOCYTES % (AUTO) 11.1 % (20.5-51.5); MEAN CORPUSCULAR HEMOGLOBIN 25 pg (27-31); MEAN CORPUSCULAR HGB CONC 32 % (32-36); MEAN CORPUSCULAR VOLUME 78 fL (79.0-98.0); MONOCYTES # (AUTO) 0.5 K/uL (0.0-1.0); MONOCYTES % (AUTO) 13.5 % (1.7-9.3); NEUTROPHILS # (AUTO) 2.8 K/uL (1.8-7.7); NEUTROPHILS % (AUTO) 72.8 % (40.0-70.0); PLATELET COUNT (AUTO) 198 K/uL (130-430); RED CELL DISTRIBUTION WIDTH 20.5 % (9.0-15.0); WHITE BLOOD COUNT (AUTO) 3.9 K/uL (4.8-10.8)
[2023-01-15] MEDS ORDERED: METOCLOPRAMIDE HCL 10 MG/2 ML VIAL IVP ONE (06:30)
[2023-01-15] MEDS ORDERED: METO-290 PO (06:49)
[2023-01-15] MEDS ORDERED: SUCR1TAB2 PO (06:49)
[2023-01-15] MEDS ORDERED: TRAM50TA2 PO (08:27)
[2023-01-15] MEDS ORDERED: BACITRACIN 1 GM OINT TP ONE (08:32)
[2023-01-15 08:40] VITALS: BP_SYST 107
== END 2023-01-15 08:42 | disposition home or self-care (01) ==
LOC: SED 22:53
DX: F07.81 Postconcussional syndrome (principal); K92.2 Gastrointestinal hemorrhage, unspecified; R10.9 Unspecified abdominal pain; E11.9 Type 2 diabetes mellitus without complications; K21.9 Gastro-esophageal reflux disease without esophagitis; I10 Essential (primary) hypertension; Z88.6 Allergy status to analgesic agent; Z91.040 Latex allergy status; Z91.041 Radiographic dye allergy status; Z79.899 Other long term (current) drug therapy
CPT/HCPCS: 99291; 71045; 80048; 85025; 85610; 85730; 86886; 86900; 86901; 36415; 81025; 70450; 96375; 96374; 96361; 72125; 74177; 96376; 76376; J1200; J2765; C9113; J0780; J3010; J3490; Q9967; J7030; C1751

== ENCOUNTER 2023-01-31 21:45 | Emergency (ER) | payer MEDICAID ==
[~2023-01-31] VITALS: Ht 167.6 cm; Wt 115.7 kg
[~2023-01-31 21:45] MED LIST changes: +METO-290 PO; +SUCR1TAB2 PO; +TRAM50TA2 PO
[2023-01-31 21:50] VITALS: BP_SYST 130
[2023-01-31 23:04] LABS: ALBUMIN 3.7 g/dL (3.4-4.8); CREATININE 0.83 mg/dL (0.55-1.30); TOTAL BILIRUBIN 0.3 mg/dL (0.0-1.0)
[2023-01-31 23:14] LABS: BASOPHILS % (AUTO) 0.6 % (0.0-2.0); EOSINOPHILS # (AUTO) 0.1 K/uL (0.0-0.4); EOSINOPHILS % (AUTO) 2.8 % (0.0-4.0); HEMATOCRIT 37.7 % (36-48); HEMOGLOBIN 12.1 g/dL (12.0-16.0); LYMPHOCYTES # (AUTO) 0.7 K/uL (1.0-5.5); LYMPHOCYTES % (AUTO) 22.9 % (20.5-51.5); MEAN CORPUSCULAR HEMOGLOBIN 26 pg (27-31); MEAN CORPUSCULAR HGB CONC 32 % (32-36); MEAN CORPUSCULAR VOLUME 82 fL (79.0-98.0); MONOCYTES # (AUTO) 0.4 K/uL (0.0-1.0); MONOCYTES % (AUTO) 14.8 % (1.7-9.3); NEUTROPHILS # (AUTO) 1.7 K/uL (1.8-7.7); NEUTROPHILS % (AUTO) 58.9 % (40.0-70.0); PLATELET COUNT (AUTO) 150 K/uL (130-430); RED BLOOD CELL COUNT(AUTO) 4.61 MIL/uL (4.2-6.2); WHITE BLOOD COUNT (AUTO) 2.9 K/uL (4.8-10.8)
== END 2023-01-31 23:13 | disposition left against medical advice (07) ==
LOC: SED 21:58
DX: R10.11 Right upper quadrant pain (principal); K21.9 Gastro-esophageal reflux disease without esophagitis; I10 Essential (primary) hypertension; Z91.041 Radiographic dye allergy status; Z88.6 Allergy status to analgesic agent; Z79.899 Other long term (current) drug therapy
CPT/HCPCS: 36415; 80053; 83690; 85025; 93005; 99284

== ENCOUNTER 2023-03-21 15:49 | Emergency (ER) | payer MEDICAID ==
[~2023-03-21] VITALS: Ht 167.6 cm; Wt 113.4 kg
[2023-03-21 15:52] VITALS: BP_SYST 154; PULSE 86; RESP 18; TEMP 98.3; O2SAT 100
[2023-03-21] MEDS ORDERED: iohexoL 350 mgI/mL, 100 ML INFUS..BTL IV ONE (16:11)
[2023-03-21] MEDS ORDERED: TENECTEPLASE 50 MG VIAL IV ONE ×2 (16:45)
[2023-03-21 17:02] LABS: HEMATOCRIT 32.8 % (36-48); HEMOGLOBIN 10.7 g/dL (12.0-16.0); MEAN CORPUSCULAR HEMOGLOBIN 28 pg (27-31); MEAN CORPUSCULAR HGB CONC 33 % (32-36); MEAN CORPUSCULAR VOLUME 85 fL (79.0-98.0); PLATELET COUNT (AUTO) 183 K/uL (130-430); RED BLOOD CELL COUNT(AUTO) 3.89 MIL/uL (4.2-6.2); RED CELL DISTRIBUTION WIDTH 17.7 % (9.0-15.0); WHITE BLOOD COUNT (AUTO) 3.2 K/uL (4.8-10.8)
[2023-03-21 17:27] LABS: ANION GAP 9 (5-15); CALCIUM 8.6 mg/dL (8.4-11.0); CHLORIDE 106 mmol/L (98-107); CREATININE 0.71 mg/dL (0.55-1.30); GFR AFRICAN AMERICAN 117 mL/min (>90); GLUCOSE 94 mg/dL (74-106); UREA NITROGEN, BLOOD 9 mg/dL (8-21)
[2023-03-21] MEDS ORDERED: DIPHENHYDRAMINE INJ 50 MG/ML VIAL IVP ONE (17:30)
[2023-03-21 17:32] LABS: PROTHROMBIN TIME 10.4 SECS (9.5-12.5)
[2023-03-21 17:33] LABS: ALANINE AMINOTRANSFERASE 53 U/L (12-78); ALBUMIN 3.4 g/dL (3.4-4.8); ASPARTATE AMINOTRANSFERASE 29 U/L (10-37); CHOLESTEROL 191 mg/dL (<200); HDL CHOLESTEROL 69 mg/dL (>55); TOTAL BILIRUBIN 0.2 mg/dL (0.0-1.0); TRIGLYCERIDES 159 mg/dL (30-150)
[2023-03-21 17:41] LABS: ATYPICAL LYMPHOCYTES % 5 % (0-0); BAND % (MANUAL) 1 % (0-6); BASOPHILS % (MANUAL) 0 % (0-2); EOSINOPHILS % (MANUAL) 1 % (0-7); LYMPHOCYTES % (MANUAL) 32 % (20-46); MONOCYTES % (MANUAL) 17 % (0-11)
[2023-03-21] MEDS ORDERED: METOCLOPRAMIDE HCL 10 MG/2 ML VIAL IVP ONE (18:00)
[2023-03-21 18:17] LABS: BILIRUBIN,URINE NEGATIVE (NEGATIVE); BLOOD, URINE NEGATIVE (NEGATIVE); CLARITY/URINE SLIGHTLY HAZY (CLEAR); COLOR,URINE YELLOW (YELLOW); GLUCOSE,URINE NEGATIVE (NEGATIVE); KETONES,URINE NEGATIVE (NEGATIVE); LEUKOCYTE ESTERASE ,URINE 1+ (NEGATIVE); NITRITE, URINE NEGATIVE (NEGATIVE); PROTEIN URINE NEGATIVE (NEGATIVE); UROBILINOGEN,URINE 0.2 (0.2-1.0)
[2023-03-21 18:42] LABS: BACTERIA,URINE MODERATE /HPF (None Seen); RBC,URINE 0-3 /HPF (0-3)
[2023-03-21] MEDS ORDERED: ACETAMINOPHEN 500 MG TABLET PO ONE (19:45)
[2023-03-21 20:22] VITALS: RESP 18
[2023-03-21 20:23] VITALS: BP_SYST 128; PULSE 80; TEMP 96.7; O2SAT 100
== END 2023-03-21 20:23 | disposition left against medical advice (07) ==
LOC: SED 15:49
DX: M62.81 Muscle weakness (generalized) (principal); R51.9 Headache, unspecified; R20.2 Paresthesia of skin; K21.9 Gastro-esophageal reflux disease without esophagitis; I10 Essential (primary) hypertension; Z91.040 Latex allergy status; Z91.041 Radiographic dye allergy status; Z88.6 Allergy status to analgesic agent; Z79.899 Other long term (current) drug therapy
CPT/HCPCS: 99291; 70450; 96374; 71045; 96375; 80061; 85027; 80053; 81000; 82550; 83037; 85007; 85610; 85730; 86886; 86900; 86901; 87086; 84484; 36415; 93005; 70496; 70498; 76376; J3101; Q9967; J1200; J2765

== ENCOUNTER 2023-05-03 10:26 | Emergency (ER) | payer MEDICAID ==
[~2023-05-03] VITALS: Ht 160 cm; Wt 81.6 kg
[2023-05-03 10:32] VITALS: BP_SYST 139; PULSE 93; RESP 18; TEMP 98.3; O2SAT 99
[2023-05-03 12:31] LABS: BILIRUBIN,URINE NEGATIVE (NEGATIVE); BLOOD, URINE NEGATIVE (NEGATIVE); CLARITY/URINE CLEAR (CLEAR); COLOR,URINE YELLOW (YELLOW); GLUCOSE,URINE NEGATIVE (NEGATIVE); KETONES,URINE NEGATIVE (NEGATIVE); LEUKOCYTE ESTERASE ,URINE NEGATIVE (NEGATIVE); NITRITE, URINE NEGATIVE (NEGATIVE); PH,URINE 6.5 (5.0-8.0); PROTEIN URINE NEGATIVE (NEGATIVE); UROBILINOGEN,URINE 0.2 (0.2-1.0)
[2023-05-03 12:42] LABS: BARBITURATE, URINE NEGATIVE (NEG <=200); BENZODIAZEPINE, URINE NEGATIVE (NEG <=150); CANNABINOID, URINE NEGATIVE (NEG <=50); COCAINE, URINE NEGATIVE (NEG <=150); METHAMPHETAMINES SCREEN,URINE NEGATIVE (NEG <=500); OPIATE, URINE NEGATIVE (NEG <=100); PHENCYCLIDINE SCREEN,URINE NEGATIVE (NEG <=25); UR TRICYCLIC ANTIDEPRESSANTS NEGATIVE (NEG <=300); URINE AMPHETAMINE NEGATIVE (NEG <=500); URINE METHADONE NEGATIVE (NEG <=200); URINE OXYCODONE SCREEN NEGATIVE (NEG <=100); URINE PROPOXYPHENE SCREEN NEGATIVE (NEG <=300)
[2023-05-03] MEDS ORDERED: ONDANSETRON HCL 4 MG/2 ML VIAL IVP ONE (14:15)
[2023-05-03] MEDS ORDERED: MORPHINE 4 MG INJ. 4 MG/ML VIAL IVP ONE (14:15)
[2023-05-03] MEDS ORDERED: traMADol HCL HCL 50 MG TABLET (ULTRAM) PO ONE (16:30)
[2023-05-03] MEDS ORDERED: traMADol HCL HCL 50 MG TABLET (ULTRAM) ONE (16:35)
[2023-05-03] MEDS ORDERED: APIX2.5T PO (18:28)
[2023-05-03 18:56] VITALS: BP_SYST 129; PULSE 74; RESP 16; TEMP 98.3; O2SAT 99
== END 2023-05-03 18:55 | disposition home or self-care (01) ==
LOC: SED 10:26
DX: R07.9 Chest pain, unspecified (principal); R51.9 Headache, unspecified; M54.50 Low back pain, unspecified; K21.9 Gastro-esophageal reflux disease without esophagitis; I10 Essential (primary) hypertension; Z88.6 Allergy status to analgesic agent; Z91.040 Latex allergy status; Z91.041 Radiographic dye allergy status; Z79.899 Other long term (current) drug therapy
CPT/HCPCS: 99285; 70450; 96374; 96375; 80307; 83880; 84484; 36415; 93005; 71250; 74176; 81025; 81003; 76376; J2405; J2270; C1751

== ENCOUNTER 2023-05-16 03:13 | Emergency (ER) | payer MEDICAID ==
[~2023-05-16] VITALS: Ht 167.6 cm; Wt 111.6 kg
[~2023-05-16 03:13] MED LIST changes: +APIX2.5T PO
[2023-05-16 03:14] VITALS: BP_SYST 110; PULSE 81; RESP 14; TEMP 97.6
[2023-05-16] MEDS ORDERED: iohexoL 350 mgI/mL, 100 ML INFUS..BTL IV ONE (04:01)
[2023-05-16 05:49] LABS: BASOPHILS % (AUTO) 0.6 % (0.0-2.0); EOSINOPHILS # (AUTO) 0.1 K/uL (0.0-0.4); EOSINOPHILS % (AUTO) 2.6 % (0.0-4.0); HEMATOCRIT 32.6 % (36-48); LYMPHOCYTES # (AUTO) 0.6 K/uL (1.0-5.5); LYMPHOCYTES % (AUTO) 17.9 % (20.5-51.5); MEAN CORPUSCULAR HEMOGLOBIN 29 pg (27-31); MEAN CORPUSCULAR HGB CONC 34 % (32-36); MEAN CORPUSCULAR VOLUME 86 fL (79.0-98.0); MONOCYTES # (AUTO) 0.4 K/uL (0.0-1.0); MONOCYTES % (AUTO) 13.2 % (1.7-9.3); NEUTROPHILS # (AUTO) 2.2 K/uL (1.8-7.7); NEUTROPHILS % (AUTO) 65.7 % (40.0-70.0); PLATELET COUNT (AUTO) 144 K/uL (130-430); RED CELL DISTRIBUTION WIDTH 14.6 % (9.0-15.0); WHITE BLOOD COUNT (AUTO) 3.3 K/uL (4.8-10.8)
[2023-05-16 06:05] LABS: ANION GAP 11 (5-15); CALCIUM 8.6 mg/dL (8.4-11.0); CARBON DIOXIDE 24 mmol/L (23-29); CHLORIDE 104 mmol/L (98-107); CREATININE 0.53 mg/dL (0.55-1.30); GFR AFRICAN AMERICAN 164 mL/min (>90); GLUCOSE 117 mg/dL (74-106); POTASSIUM 4.2 mmol/L (3.5-5.1); SODIUM SERUM 139 mmol/L (136-145); UREA NITROGEN, BLOOD 7 mg/dL (8-21)
[2023-05-16 06:06] LABS: GFR NON AFRICAN-AMERICAN 136 mL/min (>90)
[2023-05-16 06:11] LABS: ALANINE AMINOTRANSFERASE 54 U/L (12-78); ALBUMIN 3.5 g/dL (3.4-4.8); ASPARTATE AMINOTRANSFERASE 38 U/L (10-37); CHOLESTEROL 141 mg/dL (<200); HDL CHOLESTEROL 74 mg/dL (>55); LIPASE 74 U/L (73-393); TOTAL BILIRUBIN 0.8 mg/dL (0.0-1.0); TOTAL PROTEIN, SERUM 6.5 g/dL (6.4-8.3); TRIGLYCERIDES 103 mg/dL (30-150)
[2023-05-16 06:18] VITALS: BP_SYST 118; PULSE 68; RESP 18; TEMP 98.2; O2SAT 100
[2023-05-16 06:45] LABS: HEMOGLOBIN A1C 5.63 % (<5.7)
== END 2023-05-16 07:04 | disposition short-term general hospital (02) ==
LOC: SED 03:13
DX: R53.1 Weakness (principal); R20.2 Paresthesia of skin; R07.89 Other chest pain; I10 Essential (primary) hypertension; K21.9 Gastro-esophageal reflux disease without esophagitis; Z88.8 Allergy status to other drugs, medicaments and biological substances; Z91.040 Latex allergy status; Z79.899 Other long term (current) drug therapy
CPT/HCPCS: 36415; 70450-TC; 71045; 76376; 80053; 80061; 82962; 83037; 83690; 83880; 84484; 85025; 99291; Q9967